=== PATIENT | male | born 2000 | race Caucasian/White ===

== ENCOUNTER 2018-06-13 14:02 | Emergency (ER) | payer OTHER ==
[~2018-06-13] VITALS: Ht 180.3 cm; Wt 63.6 kg
[2018-06-13] MEDS ORDERED: TETanus/Pertussis (Acell)/Diphther VAC/PF (Tdap-Adult) 0.5ml syringe IMVAC ONE (14:05)
[2018-06-13] MEDS ORDERED: BUPIVAcaine/PF 2.5 mg/ml (0.25%) 30ml vial IJ ONE (14:10)
[2018-06-13] MEDS ORDERED: ondansetron 4mg rapidly disintigrating tab PO ONE (14:10)
[2018-06-13] MEDS ORDERED: HYDROcodone/acetaminophen 5mg/325mg tablet PO ONE (14:10)
[2018-06-13] MEDS ORDERED: BUPIVAcaine 2.5mg/ml inj 50ml vial (contains preservative) IJ ONE (14:20)
[2018-06-13 15:26] VITALS: BP 104/66
[2018-06-13] MEDS ORDERED: CEPH500C2 PO (16:49)
== END 2018-06-13 17:11 | disposition home or self-care (01) ==
LOC: ER 14:03
DX: S61.210A Laceration without foreign body of right index finger without damage to nail, initial encounter (principal); S60.414A Abrasion of right ring finger, initial encounter; G89.29 Other chronic pain; W29.3XXA Contact with powered garden and outdoor hand tools and machinery, initial encounter; Y93.89 Activity, other specified; Y92.89 Other specified places as the place of occurrence of the external cause; Y99.9 Unspecified external cause status
CPT/HCPCS: 12001; 73140; 90471; 90715; 99284; A6222; A6255; J3490

== ENCOUNTER 2019-04-29 13:15 | Outpatient (CLI) | payer OTHER | END 2019-04-29 14:00 | disposition home or self-care (01) | LOC: ORTHO 13:15 | PROVIDERS: ATTEND Orthopaedic Surgery | DX: S62.396D Other fracture of fifth metacarpal bone, right hand, subsequent encounter for fracture with routine healing (principal); X58.XXXD Exposure to other specified factors, subsequent encounter | CPT/HCPCS: 73130; G0463 ==

== ENCOUNTER 2019-05-26 09:35 | Outpatient (CLI) | payer OTHER | END 2019-05-26 10:03 | disposition home or self-care (01) | LOC: ORTHO 09:35 | PROVIDERS: ATTEND Orthopaedic Surgery | DX: S62.396A Other fracture of fifth metacarpal bone, right hand, initial encounter for closed fracture (principal); W22.8XXA Striking against or struck by other objects, initial encounter; Y93.67 Activity, basketball; Y92.39 Other specified sports and athletic area as the place of occurrence of the external cause; Y99.8 Other external cause status | CPT/HCPCS: 73130; G0463 ==